=== PATIENT | male | born 1995 | race Caucasian/White ===

== ENCOUNTER 2016-12-17 20:31 | Emergency (ER) | payer OTHER ==
[~2016-12-17] VITALS: Ht 177.8 cm; Wt 91.8 kg
[2016-12-17 20:36] VITALS: BP 131/78; TEMP 98.4
[2016-12-17] MEDS ORDERED: PERCOCET 325 MG1 TA2 PO (20:40)
[2016-12-17 22:33] VITALS: PULSE 68
== END 2016-12-17 22:33 | disposition home or self-care (01) ==
LOC: COL.ER 20:31
DX: K91.840 Postprocedural hemorrhage of a digestive system organ or structure following a digestive system procedure (principal); G89.18 Other acute postprocedural pain; K08.89 Other specified disorders of teeth and supporting structures
CPT/HCPCS: J1170; J2405